=== PATIENT | male | born 1955 | race Caucasian/White ===

== ENCOUNTER 2017-06-13 06:26 | Emergency (ER) | payer MEDICARE ==
[2017-06-13] MEDS ORDERED: predniSONE 20 MG TAB ONE (07:01)
[2017-06-13] MEDS ORDERED: Oseltamivir 75 MG CAP ONE (07:46)
--- NOTE | 2017-06-13 07:46 | RAD ---
CHEST TWO VIEWS: History: Shortness of breath. Flu-like symptoms. Comparison: 01-04-2013, 2014 FINDINGS: Two views chest. Stable cardiac silhouette. There is fullness in the right paratracheal region as wel l as along the right border of the cardiomediastinal silhouette. Findings are unchanged. Pulmonary ve ssels are normal. Costophrenic angles are clear. Stable calcified granulomatous lesions throughout th e lung parenchyma. No masses or consolidation. No pneumothorax or osseous abnormality. IMPRESSION: 1. No acute cardiopulmonary process. 2. Stable configuration of the cardiomediastinal silhouette. Better interrogation with nonemergent est CT is recommended. Code T POS: [facility]
== END 2017-06-13 07:52 | disposition home or self-care (01) ==
LOC: NAV ERS 06:26
DX: J11.1 Influenza due to unidentified influenza virus with other respiratory manifestations (principal); E78.5 Hyperlipidemia, unspecified; E11.9 Type 2 diabetes mellitus without complications; I10 Essential (primary) hypertension; Z87.891 Personal history of nicotine dependence; Z79.84 Long term (current) use of oral hypoglycemic drugs; Z79.899 Other long term (current) drug therapy
CPT/HCPCS: 71046; 94640; 94760; J7506; J7620

== ENCOUNTER 2019-07-27 11:51 | Emergency (ER) | payer MEDICARE, OTHER ==
[2019-07-27] MEDS ORDERED: Fluorescein Opthalmic Strip ONE (12:08)
[2019-07-27] MEDS ORDERED: Proparacaine 0.5% Opth 15 ML BOT ONE (12:08)
== END 2019-07-27 12:25 | disposition home or self-care (01) ==
LOC: NAV ERS 11:51
DX: S05.01XA Injury of conjunctiva and corneal abrasion without foreign body, right eye, initial encounter (principal); E78.5 Hyperlipidemia, unspecified; I10 Essential (primary) hypertension; E78.00 Pure hypercholesterolemia, unspecified; E11.9 Type 2 diabetes mellitus without complications; F17.290 Nicotine dependence, other tobacco product, uncomplicated; Z86.711 Personal history of pulmonary embolism; Z79.84 Long term (current) use of oral hypoglycemic drugs; Z79.899 Other long term (current) drug therapy; Z79.01 Long term (current) use of anticoagulants; X58.XXXA Exposure to other specified factors, initial encounter
CPT/HCPCS: 99283

== ENCOUNTER 2020-09-02 20:38 | Emergency (ER) | payer MEDICARE, OTHER ==
[2020-09-02] MEDS ORDERED: traMADol HCl 50 MG TAB ONE ×2 (21:05→21:16)
== END 2020-09-02 21:40 | disposition home or self-care (01) ==
LOC: NAV ERS 20:38
DX: S43.401A Unspecified sprain of right shoulder joint, initial encounter (principal); S50.01XA Contusion of right elbow, initial encounter; W19.XXXA Unspecified fall, initial encounter